=== PATIENT | male | born 1960 | race Caucasian/White ===

== ENCOUNTER 2022-01-05 05:08 | Observation (INO) ==
--- NOTE | 2021-12-15 11:44 | PAT Medication Instructions ---
Medication Instructions Date of Service December 15, 2021 Home Medications albuterol sulfate 90 mcg/actuation aerosol inhaler 1 inh INHALATION QID PRN fluticasone 250 mcg-salmeterol 50 mcg/dose blistr powdr for inhalation (Wixela Inhub) 1 inh INHALATION BID hydrochlorothiazide 12.5 mg capsule 12.5 mg PO Q2D lisinopril 5 mg tablet 5 mg PO QAM metformin 500 mg tablet 500 mg PO BID rosuvastatin 10 mg tablet 10 mg PO QAM aspirin 81 mg capsule 81 mg PO QAM omega 3 350 mg-dha 235 mg-epa 90 mg-fish oil 597 mg capsule,delay rel (Wood-3) 1 cap PO QAM turmeric 400 mg capsule 400 mg PO QAM STOP taking 2 weeks before surgery (or as soon as possible if surgery is within 2 weeks) omega 3 350 mg-dha 235 mg-epa 90 mg-fish oil 597 mg capsule,delay rel (Wood-3) 1 cap PO QAM turmeric 400 mg capsule 400 mg PO QAM DO NOT take the morning of surgery hydrochlorothiazide 12.5 mg capsule 12.5 mg PO Q2D lisinopril 5 mg tablet 5 mg PO QAM metformin 500 mg tablet 500 mg PO BID Take morning of surgery With a small sip of water, OTHERWISE NOTHING TO EAT OR DRINK AFTER MIDNIGHT: albuterol sulfate 90 mcg/actuation aerosol inhaler 1 inh INHALATION QID PRN (use if needed; please bring rescue inhaler with you to hospital day of surgery if possible) fluticasone 250 mcg-salmeterol 50 mcg/dose blistr powdr for inhalation (Wixela Inhub) 1 inh INHALATION BID rosuvastatin 10 mg tablet 10 mg PO QAM aspirin 81 mg capsule 81 mg PO QAM (continue as normal unless told otherwise by surgeon) Take evening before surgery albuterol sulfate 90 mcg/actuation aerosol inhaler 1 inh INHALATION QID PRN (if needed) fluticasone 250 mcg-salmeterol 50 mcg/dose blistr powdr for inhalation (Wixela Inhub) 1 inh INHALATION BID metformin 500 mg tablet 500 mg PO BID Other Notes If you have any questions please call us at [phone] or [phone] or [phone] or [phone]
--- NOTE | 2021-12-17 08:34 | Anesthesiology Consultation ---
Date of Service December 17, 2021 Assessment & Plan (1) Encounter for pre-operative examination: Chart Review Chart Review: Acceptable Risk for Surgery (pending preop Covid testing results and cardio appt (12/18/21) ) and Patient seen in Pre Admission Testing - Awaiting cardio office visit (12/18/21) - Check BSG AM DOS Per PAT appt on 12/17/21, patient denies any recent travel or large group activities. No known Covid positive exposures or Covid related symptoms. No known Covid infection in the past 90 days. Pt is vaccinated for Covid. Preop Covid testing scheduled 01/01/22 = will await results. Educated on importance of self quarantining, social distancing and wearing mask in public for the patient one week prior to surgery and after Covid testing done Teaching & Discussion Pre-Anesthesia Teaching/Discussion Notes: Instructed NPO after midnight before surgery,except medications with 15 cc of water. Medication instructions provided according to the PAT guidelines. History Surgery Operation Date: 01/05/22 10:40 Proposed Procedures p Right Total Hip Arthroplasty - Jonathan Young MD Height/Weight Height: 5 ft 8 in Weight: 119.2 kg Allergies Allergy/AdvReac Type Severity Reaction Status Date / Time No Known Allergies Allergy Verified 12/15/21 10:53 Medications Home Medications Medication Instructions Recorded Confirmed Last Taken albuterol sulfate 90 mcg/actuation 1 inh INHALATION QID PRN 11/30/21 12/15/21 Un known aerosol inhaler fluticasone 250 mcg-salmeterol 50 1 inh INHALATION BID 11/30/21 12/15/21 Unknown mcg/dose blistr powdr for inhalation (Wixela Inhub) hydrochlorothiazide 12.5 mg capsule 12.5 mg PO Q2D 11/30/21 12/15/21 Unknown lisinopril 5 mg tablet 5 mg PO QAM 11/30/21 12/15/21 Unknown metformin 500 mg tablet 500 mg PO BID 11/30/21 12/15/21 Unknown rosuvastatin 10 mg tablet 10 mg PO QAM 11/30/21 12/15/21 Unknown aspirin 81 mg capsule 81 mg PO QAM 12/15/21 12/15/21 Unknown omega 3 350 mg-dha 235 mg-epa 90 1 cap PO QAM 12/15/21 12/15/21 Unknown mg-fish oil 597 mg capsule,delay rel ([place]-3) turmeric 400 mg capsule 400 mg PO QAM 12/15/21 12/15/21 Unknown Past Medical History Medical History Chronic obstructive pulmonary disease Breathing stable- quit smoking two years ago Diabetes mellitus, type 2 NIDDM Hypertension Osteoarthritis Exercise / Class Metabolic Activity II 4-5 Yardwork/Stairs/Walk up hill (one flight of stairs - no chest pain or SOB ) Past Surgical History Surgical History No history of previous surgery Past Anesthesia History No Family Hx of Anesthesia Complications and Other (No personal hx of anesthesia ) History of PONV No Hx of Motion Sickness Social History Smoking Status: Former smoker Do You Dip or Chew Tobacco: No Smoking End Date: 2019 Hx Alcohol Use: Yes alcohol intake frequency: a few times a week Hx Substance Use: No substance use type: does not use Review of Systems Hx of snoring- no hx of sleep study Patient denies chest pain, shortness of breath, dyspnea on exertion, reflux, cough, wheezing, palpitations. No hx of seizures, stroke, NC. No hx of blood clots or blood transfusions Physical Exam Vital Signs VITALS BP 113/78 P 85 TEMP 98.3 SP02 93% RESP 16 Constitutional no acute distress ENMT Mouth: no TMJ clicking Thyromental Distance: > or= 3.5 Finger Breadths (3.5) Mallampati Class: II Mouth / Teeth: 1. LOOSE TOOTH 2. Missing 3. Missing 4. Missing Missing side teeth and molars Neck + short neck, + thick neck and + limited neck extension (mild ) Respiratory normal respiratory effort; no respiratory distress Auscultation: lungs clear to auscultation bilaterally and + diminished lung sounds (mildly thoughout ); no wheezes Cardiovascular Rate/Rhythm: regular rate and regular rhythm Heart Sounds: no murmur Vessels: no carotid bruit Heart sounds diminished throughout Musculoskeletal Spine: no pain with cervical ROM Extremities: extremities normal to inspection Psychiatric Orientation: alert Lab Results Anesthesia Preop Results Results Anesthesia Widget: WBC 10.94 K/ul (4.8-10.8) H 12/17/21 Hgb 16.9 g/dl (14.0-18.0) 12/17/21 Hct 48.1 % (40.1-51.0) 12/17/21 Plt 244 K/uL (130-400) 12/17/21 Na 137 mmol/L (136-145) 12/17/21 K 4.3 mmol/L (3.5-5.1) 12/17/21 Cl 101 mmol/L (98-107) 12/17/21 CO2 29 mmol/L (21-32) 12/17/21 BUN 18 mg/dl (6-23) 12/17/21 Creat 0.92 mg/dl (0.6-1.4) 12/17/21 Glucose Level 96 mg/dl (70-99(Fasting)) 12/17/21 PT 10.4 Seconds (9.0-12.0) 12/17/21 PTT 27.8 Seconds (21.0-31.0) 12/17/21 INR 1.0 (0.9-1.1) 12/17/21 HA1c 5.9 % (4.5-5.6) H 12/17/21 Blood Type AB Positive 12/17/21 Antibody Screen NEGATIVE 12/17/21 Testing Electrocardiogram Date: 05/29/21 SR with 1st degree AVB at 779bpm Left atrial abnormality Left axis deviation Low voltage QRS, consider pulmonary disease, pericardial effusion or normal variant Cannot rule out anterior infarct (cited on or before Apr 08, 2020) When compared to EKG from April 08, 2020no significant changes found per cardio Chest X-Ray Date: 12/17/21 Findings: + NAD FINDINGS: The cardiomediastinal and hilar silhouettes are within normal limits. Atherosclerosis of the thoracic aorta. No pneumothorax, large pleural effusion or overt pulmonary edema. Hyperinflation with diaphragmatic flattening. Mid thoracic levoscoliosis. Degenerative changes of the shoulders and spine.
--- NOTE | 2022-01-01 15:48 | History and Physical Report ---
CHIEF COMPLAINT: Right hip pain. HISTORY OF PRESENT ILLNESS: The patient is a 61-year-old gentleman who presents specifically for surgical treatment of his right hip. He has a several-year history of increasing right hip pain and discomfort that has gotten significantly worse over the past 2 years. He was diagnosed with avascular necrosis of both femoral heads. He was referred to [facility] and scheduled for surgery, but then canceled. He has never been rescheduled. He now presents for surgical treatment. Pain has become debilitating. Describes groin pain, thigh pain. He has difficulty getting around even with a cane. His walking tolerance is about a block. He would like to have his hip fixed. Patient does have a history of alcohol use in the past. Drinks two nights a week. He says he can go without alcohol. No steroid use. PAST MEDICAL HISTORY: Significant for: 1. Emphysema/COPD. 2. Diabetes, well controlled with A1c of 5.9. 3. Osteoarthritis. 4. Low back pain/sciatica. 5. Obesity, BMI of 40. PAST SURGICAL HISTORY: None. ALLERGIES: None. CURRENT MEDICATIONS: 1. Tylenol. 2. Albuterol. 3. Fluticasone nasal spray. 4. Lisinopril 5 mg daily. 5. Metformin twice a day. 6. [place] 3. 7. Turmeric. SOCIAL HISTORY: A 61-year-old male. He works in construction for [employer]. He has become debilitated and limited due to his hip pain. FAMILY HISTORY: Noncontributory. REVIEW OF SYSTEMS: Significant for diabetes. No chest pain or shortness of breath. No history of DVT or PE. No known bleeding problems. He does have significant alcohol use in the past. PHYSICAL EXAMINATION: GENERAL: Shows a pleasant, obese, middle-aged male. Looks to be in pretty good health. HEENT: Benign. NECK: Supple. No lymphadenopathy. LUNGS: Clear to auscultation. HEART: Regular rate and rhythm. ABDOMEN: Soft, nontender, nondistended. EXTREMITIES: Grossly neurovascularly intact except as follows. Examination of the right hip reveals the patient walks with a markedly antalgic gait. Without the cane, he has trouble walking at all. Leg lengths appear equal. He has got some mild edema in the lower extremities. He has got pain with hip internal rotation. He can internally rotate to about neutral. Negative straight leg raise. X-RAYS: X-rays of the right hip reveal advanced right hip arthritis. He has got avascular necrosis of femoral head with a large area of collapse. MRI from [facility] was reviewed. It shows evidence of bilateral hip AVN. He has got collapse on the right side. 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 He has failed conservative measures. He is debilitated by his disease. He would like to proceed with surgical treatment. PLAN: We are going to proceed with right total hip replacement. The risks and benefits of this procedure were explained to the patient and include but not limited to DVT, PE, , infection, neurological injury, vascular injury, bleeding problem, pain, limited range of motion, stiffness, failure to relieve symptoms, incomplete relief of symptoms, need for further surgery in the future, etc. The patient understands and desires to proceed. Informed consent was obtained. He has been seen by his head wood grinder, Dr. Mixon and been medically optimized for surgery. We will likely use DVT prophylaxis in the hospital due to alcohol use in the past. We will use insulin sliding scale coverage for his diabetes. Hold the metformin on the morning of surgery. Hold lisinopril on the morning of surgery. We will follow back in clinic 2 weeks postop. Job ID: [id number] [facility]ITAL[facility]ec[facility]
[2022-01-05] MEDS ORDERED: ACETAMINOPHEN 500 MG TAB PO SCH (06:00)
[2022-01-05] MEDS ORDERED: TRANEXAMIC ACID 1,000 MG **IV Pre-op IV SCH (06:00)
[2022-01-05] MEDS ORDERED: Scopolamine 1 MG TDSY TD SCH (06:00)
[2022-01-05] MEDS ORDERED: LR 60ML/HR IV SCH (06:00)
[2022-01-05] MEDS ORDERED: CeleBREX 200 MG CAP PO SCH (06:00)
[2022-01-05] MEDS ORDERED: FAMOTIDINE 20 MG TAB PO SCH (06:00)
[2022-01-05] MEDS ORDERED: ceFAZolin 2000MG 2,000 MG/15 ML SYR IV SCH (06:00)
[2022-01-05] MEDS ORDERED: METOCLOPRAMIDE HCL 10 MG TABLET PO SCH (06:00)
[2022-01-05] MEDS ORDERED: LR 500ML BOLUS, THEN 15ML/HR IV SCH (06:00)
[2022-01-05] MEDS ORDERED: BUPIVACAINE 0.5 % 5 MG/1 ML PF 10ML VIAL ONE (06:26)
[2022-01-05] MEDS ORDERED: MIDAZOLAM HCL 1 MG/ML 2ML VIAL ONE (06:40)
[2022-01-05] MEDS ORDERED: EPINEPHrine INJ 1 MG/ML AMP ONE (06:41)
[2022-01-05] MEDS ORDERED: BUPIVACAINE 0.5 % 5 MG/1 ML MPF 30ML VIAL ONE (06:41)
[2022-01-05] MEDS ORDERED: PROPOFOL IV EMULSION 10 MG/ML 20 ML VIAL IV ONE ×2 (06:43→09:47)
--- NOTE | 2022-01-05 06:53 | History & Physical Bridge Note ---
Date of Service January 05, 2022 History & Physical Bridge Note I have examined the patient, reviewed the History & Physical and in the interval since the performance of the History & Physical I have noted the following changes of clinical significance: no changes noted
[2022-01-05] MEDS ORDERED: HYDROmorphone INJ 2 MG/ML SYR/VIAL IV PRN (07:12)
[2022-01-05] MEDS ORDERED: ONDANSETRON INJ 2 MG/ML 2 ML VIAL IV PRN ×2 (07:12→09:51)
[2022-01-05] MEDS ORDERED: ATROPINE SULFATE 0.1 MG/ML 10ML SYR IV PRN (07:12)
[2022-01-05] MEDS ORDERED: ePHEDrine sulfate 50 MG/ML AMP IV PRN (07:12)
[2022-01-05] MEDS ORDERED: fentaNYL citrate 100 MCG/2 ML VIAL IV PRN (07:12)
[2022-01-05] MEDS ORDERED: KETAMINE 50 MG/5 ML SYRINGE ONE (07:55)
--- NOTE | 2022-01-05 08:54 | Operative Report ---
PG Post Operative Report Pre & Post Diagnosis Operation Date: 01/05/22 07:00 Pre-Op Diagnosis: Advanced right hip degenerative joint disease secondary to avascular necrosis Post-Op Diagnosis: Advanced right hip degenerative joint disease secondary to avascular necrosis I identified the patient and participated in the time-out.: Yes Procedure Operation Date: 01/05/22 07:00 Actual Procedures p Right Total Hip Replacement Uncemented(Right) - Jonathan Young MD Surgeon Jonathan Young MD Pole Framer Sinan Alva PA-C Estimated Blood Loss 200 Findings Consistent with Post-Op Diagnosis Findings revealed subchondral fracture of the femoral head with delamination of the cartilage surface. It was a fairly large area. He had moderate sized hip joint effusion. Not a lot of arthritic changes otherwise. Fluids 1000 cc Specimens Right femoral head sent for pathology Drains None Anesthesia Type Spinal MAC Complications none Disposition Accompanied Patient To Recovery: Yes Indications Patient is a 61-year-old gentleman has had a several year history of increasing right hip pain discomfort is gotten singly worse over the past 6 months. He had been seen at [facility] and scheduled for surgery but canceled due to the COVID epidemic. They would not give him a time when they cannot reschedule him so he presents here for surgical management. He is becoming debilitated by his disease. He had use a cane to get around him and having troubles with that. He elected proceed with surgical management. Description of Procedure Operative implants consist of: 1 Biomet G7 size 54 mm acetabular shell. 2. 6.5 cancellous acetabular screws 1 of 35 mm length 1 of 30 mm length. 3. [place] hole gin pole operator. 4. Highly cross-linked polyethylene liner with a vitamin E E with a 54 mm outer diameter and a 36 mm diameter. 5. DePuy Karaya size 12 KLA femoral stem. 6. +5/36 mm ceramic articular ball. The patient was taken to the operating, identified, placed on the operating table supine position protectors were properly padded. IV antibiotics tried by anesthesia team. A spinal anesthetic had been implemented holding area. A Marquez cath was placed in sterile fashion. The patient then placed in the left lateral decubitus position. An axillary roll was placed. A Stulberg hip positioner was used for positioning. The right hip and leg were then prepped and draped in usual sterile fashion. A posterior lateral approach of the right hip was then performed to a curvilinear incision centered over the greater trochanter. Sharp dissection Through subcutaneous tissue down to level the IT band gluteal fascia. IT band gluteal fascia were incised longitudinally in line with skin incision. The underlying greater bursa was excised. The piriformis and external rotators along with the posterior hip joint capsule were then released as a single layer. Great care was taken throughout the procedure protect the sciatic nerve at all times. Hip was internally rotated and dislocated. A femoral neck osteotomy cut was made with Final Cut about 15 mm above the lesser trochanter. Femoral head was removed and sent for pathology. The femur was retracted anteriorly. Attention drawn the acetabulum. The acetabular labrum was excised. The pulmonary fat was excised. I then used a #curette to scrape off some of the cartilage to allow better reaming. We then prepared the acetabulum beginning with a 47 mm reamer and progressing up to 53. A 54 mm meters used to just enter the acetabulum. A 54 mm Biomet G7 acetabular shell was then placed in about 40 degrees lateral opening and 20 degrees of anteversion. It was fixed with two 6.5 cancellous acetabular screws. Trial liner was placed. Attention drawn the femur. The proximal femur was entered with a cookie cutter followed by canal finder. I then broached begin the size 8 and progressing up to 12. Got excellent fit of the 12. We trialed the hip and the +5 articular ball provide full stability and equal leg lengths and appropriate soft tissue tension. I elected to place these implants. Nupathe all trial implants were removed. An apex clam shovel operator was placed. Highly cross-linked polyethylene liner with vitamin E enrichment was placed. A DePuy size 12 KLA femoral stem was impacted in position. +5/36 mm ceramic articular ball was placed. Hip was located once again found to be stable. Attention drawn toward closing. The wound was irrigated closed pulsatile lavage solution. I did inject locally with 60 cc of half percent Marcaine with epinephrine. Posterior capsule and external rotators were repaired through drill in the posterior trochanter as a single layer. The IT band gluteal fascia then closed with #1 PDS suture in a running fashion the subcutaneous tissues were then closed in 2 layers the deep layer #1 Vicryl suture subcutaneous tissue with 2-0 Dexon suture in a buried interrupted fashion the skin was closed skin kelley. Legs then cleaned and dried and sterile dressing was Xeroform, 4 fours, sterile ABD pad, foam tape were applied. Patient then transferred to the recovery room in stable condition. Patient tolerated procedure well and there were no complications. Sinan Alva, my physician hearing and speech assistant, was present for the entire procedure. His assistance was essential and required for appropriate patient positioning, prepping and draping, surgical exposure, performing the technical details of the operation, placement the implants, closure of the wound, and placement of the sterile bandage. I attest to the content of the Intraoperative Record and any orders documented therein. Any exceptions are noted below.
--- NOTE | 2022-01-05 09:29 | Anesthesiology Progress Note ---
Date of Service January 05, 2022 Anesthesia Post Procedure Vital Signs Vital Signs: Temp Pulse Pulse Resp BP BP Pulse Ox 01/05/22 09:25 36.6 C 60 14 93/64 L 96 01/05/22 09:15 60 14 102/67 99 01/05/22 09:05 62 14 84/54 L 98 01/05/22 08:55 65 12 84/44 L 98 01/05/22 08:46 36.7 C 72 14 75/54 L 98 01/05/22 06:00 36.8 C 90 20 133/97 92 O2 Del Method O2 Flow Rate 01/05/22 09:25 Room Air 01/05/22 09:15 Room Air 01/05/22 09:05 Oxymask 6 01/05/22 08:55 Oxymask 6 01/05/22 08:46 Oxymask 6 01/05/22 06:00 Room Air Transfer of Care Handoff Completed per policy Notes Mental Status: alert / awake / arousable and participated in evaluation Patient Amnestic to Procedure: Yes Nausea / Vomiting: adequately controlled Pain: adequately controlled Airway Patency, RR, SpO2: stable & adequate BP & HR: stable & adequate Hydration State: stable & adequate Anesthetic Complications: no major complications apparent and Pt Satisfied with anesthetic care
--- NOTE | 2022-01-05 09:31 | XRay Report ---
XR hip 1V RT w pelvis HISTORY: 61 years-old Male IN PACU - A/P PELVIS and LATERAL HIP right hip total joint arthroplasty COMPARISON: Hip radiographs 11/30/2021 TECHNIQUE: AP view of the pelvis with crosstable lateral view of the right hip FINDINGS: Left hip avascular necrosis with moderate osteoarthritis redemonstrated. No articular collapse. Right hip total joint arthroplasty appears to be in satisfactory positioning. Lateral skin kelley are pre sent along with expected postoperative soft tissue swelling and deep tissue air. No acute fracture or unexpected opaque foreign body identified. IMPRESSION: 1. Right hip total joint arthroplasty with expected postoperative changes. 2. Avascular necrosis of the left femoral head redemonstrated. ACT 112: Negative or not required by law. The above report was generated using voice recognition software. It may contain grammatical, syntax o r spelling errors. Electronically signed by: Victor Manuel Barker M.D. 01/05/2022 9:30 AM
[2022-01-05] MEDS ORDERED: PHENYLEPHRINE 100MCG/ML 5ML SYR ONE (09:47)
[2022-01-05] MEDS ORDERED: PHARMACY GLYCEMIC MGMT CONSULT PRN (09:51)
[2022-01-05] MEDS ORDERED: SODIUM CHLORIDE 0.9% 1000ML 1,000 ML IV SCH (09:51)
[2022-01-05] MEDS ORDERED: GLUCAGON FOR INJ 1 MG VIAL SQ PRN (09:51)
[2022-01-05] MEDS ORDERED: ALBUTEROL HFA 8 GM INHALER INH PRN (09:51)
[2022-01-05] MEDS ORDERED: NALOXONE HCL 0.4 MG/1 ML VIAL/CARP IV PRN (09:51)
[2022-01-05] MEDS ORDERED: DOCUSATE SODIUM/SENNA 50/8.6MG TAB PO SCH (09:51)
[2022-01-05] MEDS ORDERED: GLUCOSE 40% GEL 15 GM TUBE PO PRN (09:51)
[2022-01-05] MEDS ORDERED: METOCLOPRAMIDE HCL INJ 5 MG/ML 2 ML VIAL IV PRN (09:51)
[2022-01-05] MEDS ORDERED: GLUCOSE 10 TAB/TUBE PO PRN (09:51)
[2022-01-05] MEDS ORDERED: ALUMINUM/MAGNESIUM SUSP 30 ML UDC PO PRN (09:51)
[2022-01-05] MEDS ORDERED: CARBOHYDRATES FOR HYPOGLYCEMIA PO PRN (09:51)
[2022-01-05] MEDS ORDERED: chlordiazePOXIDE HCl 25 MG CAP PO PRN (09:51)
[2022-01-05] MEDS ORDERED: NON-FORMULARY MEDICATION (Turmeric 400 mg Capsule) PO SCH (09:51)
[2022-01-05] MEDS ORDERED: MAGNESIUM HYDROXIDE SUSP 30 ML UDC PO PRN (09:51)
[2022-01-05] MEDS ORDERED: bisacodyL 10 MG SUPP PR PRN (09:51)
[2022-01-05] MEDS ORDERED: DEXTROSE 50% 50 ML SYRINGE IV PRN (09:51)
[2022-01-05] MEDS ORDERED: hydroCHLOROthiazide 25 MG TAB PO SCH (10:30)
[2022-01-05] MEDS: OMEGA-3 (PURIFIED FISH OIL) 1 GM CAP PO SCH (10:39)
[2022-01-05] MEDS: ASPIRIN 81 MG ECTAB PO SCH ×2 (10:40→19:40)
[2022-01-05] MEDS: DOCUSATE SODIUM 100 MG CAP PO SCH ×2 (10:40→19:40)
[2022-01-05] MEDS: ROSUVASTATIN CALCIUM 10 MG TAB PO SCH (10:40)
[2022-01-05] MEDS: MULTIVITAMIN TAB PO SCH (10:41)
[2022-01-05] MEDS: KETOROLAC 30 MG/ML VIAL IV SCH ×3 (10:46→23:01)
[2022-01-05] MEDS: THIAMINE HCL 100 MG TAB PO SCH (10:52)
[2022-01-05] MEDS: TAMSULOSIN HCL 0.4 MG CAP PO SCH (10:52)
[2022-01-05] MEDS: lisinopril 5 MG TAB PO SCH (10:53)
[2022-01-05] MEDS: FOLIC ACID 1 MG TAB PO SCH (10:54)
[2022-01-05] MEDS: FLUTICASONE/VILANTEROL 200/25MCG 14 PUFFS/INHALER INH SCH (10:55)
--- NOTE | 2022-01-05 12:06 | Pharmacy Report ---
Pharmacy Glycemic Short Note 2 - Date of Service January 05, 2022 - Glycemic Short BSG Results (Last 24 hours): 01/05/22 01/05/22 05:51 08:51 POC Glucose 117 H 115 H OUTPATIENT ANTIDIABETIC REGIMEN: * metformin 500 mg PO BID * HbA1C = 5.9% (12/17/21) ASSESSMENT: * Mr Flores is a 61 y/o M with a PMH on T2DM on metformin who presents for R hip replacement. Patient received no steroids. * BSGs prior to surgery were 117-115 mg/dL. * As BSGs < 140 mg/dL + patient's HbA1C indicates excellent control, will hold Lantus. * Novolog weight-based stress of 2 for now. * Resume metformin 01/06or 01/07 based upon diet and kidney function. PLAN FOR INPATIENT GLYCEMIC CONTROL: * Hold outpatient oral diabetes medications * Basal insulin * hold * Bolus insulin * NovoLog per scale ACHS or Q6hrs while NPO * Goal Range: Low 110 mg/dL - High 140 mg/dL * Correction Factor: 25 mg/dL/unit * Nutritional / Prandial insulin per carb ratio of 1 unit per 8 grams CHO consumed
--- NOTE | 2022-01-05 12:34 | Electrocardiogram Report ---
Test Reason : Blood Pressure : / mmHG Vent. Rate : 093 BPM Atrial Rate : 093 BPM P-R Int : 196 ms QRS Dur : 072 ms QT Int : 336 ms P-R-T Axes : 068 -52 045 degrees QTc Int : 417 ms Poor data quality, interpretation may be adversely affected Normal sinus rhythm Left axis deviation Low voltage QRS Possible Old Inferior infarct Poor R wave progression, consider anterior [place] vs. lead placement vs. LVH Abnormal ECG No previous ECGs available Confirmed by Berto Clifford ([id number]) on 01/05/2022 12:34:15 PM Referred By: Jonathan Young Confirmed By:Berto Clifford
[2022-01-05] MEDS: INSULIN ASPART PER UNIT SC SCH ×3 (12:36→20:57)
[2022-01-05] MEDS: ACETAMINOPHEN 500 MG TAB PO SCH ×2 (13:58→21:37)
[2022-01-05] MEDS ORDERED: TRANEXAMIC ACID / 0.7% NACL 1,000 MG/100 ML BAG IV SCH (14:45)
[2022-01-05] MEDS: ceFAZolin 2000MG 2,000 MG/15 ML SYR IV SCH ×2 (15:13→23:02)
[2022-01-05] MEDS ORDERED: LORazepam 1 MG TAB PO PRN (15:38)
[2022-01-05] MEDS: traMADol HCL 50 MG TABLET PO PRN (15:43)
[2022-01-05] MEDS: Scopolamine CHECK PATCH PLACEMENT SCH ×2 (15:44→23:02)
[2022-01-05] MEDS: ASCORBIC ACID 500 MG TAB PO SCH (16:49)
[2022-01-05] MEDS: HYDROmorphone INJ 0.5 MG/0.5 ML SYR IV PRN (19:33)
[2022-01-05] MEDS ORDERED: SENNA 8.6 MG TAB PO SCH (21:00)
[2022-01-06] MEDS: HYDROmorphone INJ 0.5 MG/0.5 ML SYR IV PRN (01:25)
[2022-01-06] MEDS: KETOROLAC 30 MG/ML VIAL IV SCH ×2 (04:21→10:07)
[2022-01-06 06:15] LABS: Basophils # (auto) 0.06 K/uL (0-0.2); Basophils % (auto) 0.4 %; Eosinophils # (auto) 0.04 K/uL (0-0.50); Eosinophils % (auto) 0.3 %; Hematocrit (blood only) 40.4 % (40.1-51.0); Hemoglobin 13.9 g/dl (14.0-18.0); Immature Granulocytes # (auto) 0.05 K/uL (0.00-0.02); Immature Granulocytes % (auto) 0.4 %; Lymphocytes # (auto) 1.77 K/uL (1.2-3.4); Lymphocytes % (auto) 13.1 %; Mean Corpuscular Hemoglobin 32.9 pg (25.0-34.0); Mean Corpuscular Hgb Conc 34.4 g/dL (32.0-36.0); Mean Corpuscular Volume 95.7 fL (80.0-100.0); Mean Platelet Volume 9.6 fL (9.4-12.4); Monocytes # (auto) 1.36 K/uL (0.24-0.82); Neutrophils # (auto) 10.26 K/uL (1.4-6.5); Neutrophils % (auto) 75.8 %; Platelet Count 201 K/uL (130-400); RDW Coefficient of Variation 12.2 % (11.5-14.5); RDW Standard Deviation 42.8 fL (36.4-46.3); Red Blood Count 4.22 M/uL (4.63-6.08); White Blood Count 13.54 K/ul (4.8-10.8)
[2022-01-06] MEDS: ACETAMINOPHEN 500 MG TAB PO SCH (06:16)
[2022-01-06 06:50] LABS: BUN Creatinine Ratio 21.7 (10-20); Calcium 8.3 mg/dl (8.5-10.1); Creatinine Clr Calc Pharmacy 108.6 ml/min; Est GFR (African American) 105.1 ml/min; Est GFR (Non-African American) 90.7 ml/min; Potassium 4.1 mmol/L (3.5-5.1)
[2022-01-06] MEDS ORDERED: metFORMIN HCL 500 MG TAB PO SCH (08:00)
--- NOTE | 2022-01-06 08:00 | Progress Notes ---
DATE OF SERVICE: 01/06/2022. SUBJECTIVE: A 61-year-old gentleman, postoperative day 1 from right hip replacement. He is doing pr lesly well. He has been getting up and going to the bathroom regularly. No chest pain, no shortness of breath. Pain is controlled. OBJECTIVE: VITAL SIGNS: Temperature is 36.6. Vital signs are stable. GENERAL: Physical examination shows a pleasant middle-aged male. He was getting in and out of the b athroom this morning when I visited with him. He looks reasonably comfortable. LUNGS: Clear to auscultation. HEART: Regular rate and rhythm. ABDOMEN: Soft, nontender, nondistended. EXTREMITIES: Grossly neurovascularly intact except as follows: Examination of the right hip reveals the dressing to be clean, dry and intact. His thigh is soft and supple. He is neurologically intac t. LABORATORY DATA: Hemoglobin is 13.9. Hematocrit 40.4. Electrolytes are stable. ASSESSMENT: A 61-year-old gentleman, postoperative day 1 from right hip replacement, doing quite wel l. Pain is controlled. Hip is located. He is neurologically intact. PLAN: 1. DVT prophylaxis includes thigh-high TEDs, SCDs, and aspirin twice a day. 2. PT/OT, weightbear as tolerated. Right total hip protocol. 3. Pain control, doing okay with current pain regimen. 4. Disposition: Plan to discharge to home with some home health likely later today if he does okay in therapy. Job ID: [id number]
[2022-01-06] MEDS: DOCUSATE SODIUM 100 MG CAP PO SCH (08:47)
[2022-01-06] MEDS: FLUTICASONE/VILANTEROL 200/25MCG 14 PUFFS/INHALER INH SCH (08:47)
[2022-01-06] MEDS: ASCORBIC ACID 500 MG TAB PO SCH (08:47)
[2022-01-06] MEDS: OMEGA-3 (PURIFIED FISH OIL) 1 GM CAP PO SCH (08:47)
[2022-01-06] MEDS: Scopolamine CHECK PATCH PLACEMENT SCH (08:47)
[2022-01-06] MEDS: ROSUVASTATIN CALCIUM 10 MG TAB PO SCH (08:48)
[2022-01-06] MEDS: FOLIC ACID 1 MG TAB PO SCH (08:48)
[2022-01-06] MEDS: THIAMINE HCL 100 MG TAB PO SCH (08:48)
[2022-01-06] MEDS: TAMSULOSIN HCL 0.4 MG CAP PO SCH (08:48)
[2022-01-06] MEDS: ASPIRIN 81 MG ECTAB PO SCH (08:48)
[2022-01-06] MEDS: MULTIVITAMIN TAB PO SCH (08:49)
[2022-01-06] MEDS: lisinopril 5 MG TAB PO SCH (08:49)
[2022-01-06] MEDS: INSULIN ASPART PER UNIT SC SCH (08:54)
[2022-01-06] MEDS: traMADol HCL 50 MG TABLET PO PRN (10:06)
== END 2022-01-06 11:24 | disposition home health service (06) ==
LOC: ASU 05:08 → 3E 05:08